=== PATIENT | female | born 1950 | race Caucasian/White ===

== ENCOUNTER → 2023-10-28 13:05 | Outpatient (CLI) | payer MEDICARE, OTHER, SELFPAY ==
[2023-10-28 14:08] LABS: Erythrocyte Sedimentation Rate 1 MM/HR (0-20)
[2023-10-29 02:08] LABS: High Sensitivity CRP - Cardiac 1.3 mg/L (1.0-3.0)
[2023-10-30 21:07] LABS: SS A Ro Sjogrens Antibody < 0.2 AI (0.0-0.9); SS B La Sjogrens Antibody < 0.2 AI (0.0-0.9)
[2023-11-02 16:15] LABS: ANA Screen, IFA Negative (.)
== END ==
PROVIDERS: PCP Family Medicine; Referring Provider Ophthalmology; Visit Provider Ophthalmology
DX: H04.123 Dry eye syndrome of bilateral lacrimal glands (principal)
CPT/HCPCS: 85651; 86038; 86140; 86235